=== PATIENT | female | born 1985 | race Caucasian/White ===

== ENCOUNTER 2016-09-19 07:32 | Emergency (ER) | payer MEDICAID ==
[~2016-09-19] VITALS: Ht 154.9 cm; Wt 65.5 kg
[~2016-09-19 07:32] MED LIST: CIPR500T4 PO; IBUP-1542 PO; NO MEDS
[2016-09-19 07:36] VITALS: Ht 154.9 cm; Wt 65.5 kg
[2016-09-19] MEDS ORDERED: morphine 4 MG/ML VIAL IV STA (08:06)
[2016-09-19] MEDS ORDERED: SOD CHLORIDE 0.9% 1,000 ML IV STA (08:06)
[2016-09-19] MEDS ORDERED: ONDANSETRON 4 MG INJ IV STA (08:06)
[2016-09-19 08:35] LABS: ADD UMIC YES; URINE BILIRUBIN (Dip) 1+ (NEGATIVE); URINE BLOOD (Dip) 1+ (NEGATIVE); URINE COLOR LT. YELLOW (YELLOW); URINE GLUCOSE (Dip) NEGATIVE (NEGATIVE); URINE KETONES (Dip) 40 (NEGATIVE); URINE LEUKOCYTE ESTERASE (Dip) 2+ (NEGATIVE); URINE NITRITE (Dip) NEGATIVE (NEGATIVE); URINE TOTAL PROTEIN (Dip) 1+ (NEGATIVE); URINE UROBILINOGEN (Dip) 1.0 E.U./dL (0.1-1.0)
[2016-09-19 08:48] LABS: ICTOTEST NEGATIVE (NEGATIVE)
[2016-09-19 08:49] LABS: SQUAMOUS EPITHELIAL CELL,UR MODERATE
[2016-09-19 08:51] LABS: BACTERIA,URINE MODERATE
[2016-09-19 09:08] LABS: ADD SCAN DIFF NO
[2016-09-19 09:19] LABS: BASOPHILS % 0.2 % (0.0-2.0); HEMATOCRIT 40.2 % (37.0-47.0); HEMOGLOBIN 13.1 g/dl (12.0-16.0); LYMPHOCYTES # 1.5 10^3/ul (0.8-2.9); LYMPHOCYTES % 13.4 % (15.0-51.0); MEAN CORPUSCULAR HEMOGLOBIN 28.2 pg (29.0-33.0); MEAN CORPUSCULAR HGB CONC 32.6 g/dl (32.0-37.0); MEAN CORPUSCULAR VOLUME 86.6 fl (82.0-101.0); MEAN PLATELET VOLUME 9.9 fl (7.4-10.4); MONOCYTE # 1.2 10^3/ul (0.3-0.9); MONOCYTES % 11.1 % (0.0-11.0); NEUTROPHIL # 8.3 10^3/ul (1.6-7.5); NEUTROPHILS % 74.8 % (39.0-77.0); PLATELET COUNT 278 10^3/UL (140-415); RED BLOOD COUNT 4.64 10^6/ul (4.20-5.40); RED CELL DISTRIBUTION WIDTH 15.9 % (11.5-14.5)
[2016-09-19 09:40] LABS: ALBUMIN 4.7 g/dl (3.3-4.9); ALBUMIN/GLOBULIN RATIO 1.3; BILIRUBIN,INDIRECT 0.3 mg/dl (0-1.1); BILIRUBIN,TOTAL 0.3 mg/dl (0.2-1.3); CALCIUM 9.1 mg/dl (8.4-10.2); CREATININE 0.73 mg/dl (0.44-1.00); POTASSIUM 3.6 mmol/L (3.5-5.1); TOTAL PROTEIN 8.3 g/dl (6.1-8.1)
--- NOTE | 2016-09-19 09:41 | RADRPT ---
PROCEDURE: CT abdomen and pelvis without contrast. CLINICAL INDICATION: Right lower quadrant abdominal pain with nausea and vomiting. TECHNIQUE: CT of the abdomen and pelvis without contrast was performed on a multidetector high-resolution CT [facility]. Coronal and sagittal reformatted images were obtained from the axial source images. Images we re reviewed on a high-resolution PACS workstation. The total exam CTDI equals 10.2 mGy and the total exam DLP equals 584.04 mGy-cm. One or more of the following dose reduction techniques were used: - Automated exposure control. - Adjustment of the mA and/or kV according to patient size. - Use of iterative reconstruction technique. COMPARISON: Pelvic ultrasound dated 10/07/2014. FINDINGS: Visualized lower thorax: The visualized lung bases are clear. The visualized heart is unremarkable. Hepatobiliary system and spleen: There is diffuse fatty infiltration of the liver, which is otherwise grossly unremarkable. There is no intra or extrahepatic biliary ductal dilatation. The gallbladder is grossly unremarkable. The spl een is grossly unremarkable. The pancreas is grossly unremarkable. Adrenal glands and genitourinary system: The adrenal glands are grossly unremarkable. There is mild right hydroureteronephrosis with no radio paque obstructing stone identified. There is also mild right perinephric inflammatory change. There is a punctate nonobstructing stone at the upper pole of the right kidney. There is no left-sided h ydronephrosis. The urinary bladder is grossly unremarkable. There are bilateral Essure devices in p lace. The uterus and adnexa are otherwise grossly unremarkable. Gastrointestinal system: The stomach and small bowel are unremarkable. There is no bowel wall thickening or evidence of obstr uction. The appendix is in the right lower quadrant and is unremarkable. Peritoneum, vascular, and lymphatics: There is no free intraperitoneal air or free fluid. There is no mesenteric or retroperitoneal adenop athy. The aorta is nonaneurysmal. Musculoskeletal system: There are no concerning osseous lesions. IMPRESSION: 1. Mild right hydroureteronephrosis and right perinephric inflammatory change with no radiopaque ob structing stone identified. Recent passage of a stone could potentially have this appearance. Under lying infection is not excluded and correlation with urinalysis is recommended. Post contrast CT can be performed as clinically warranted. Punctate nonobstructing stone at the upper pole of the right kidney. 2. Hepatic steatosis. RPTAT: GG .Chris De La Vega MD, MD Date Time Electronically viewed and signed by .Chris De La Vega MD, MD on 09/19/2016 09:40 .P/
[2016-09-19] MEDS ORDERED: CEFTRIAXONE 1 GM/50 ML (PMX) 50 ML IVPB ONE (10:30)
[2016-09-19] MEDS ORDERED: ACET1TAB40 PO (10:40)
[2016-09-19] MEDS ORDERED: CIPR500T4 PO (10:40)
[2016-09-19] MEDS ORDERED: IBUP-1542 PO (10:40)
--- NOTE | 2016-09-19 10:43 | ERD ---
ER Documentation Chief Complaint Date/Time DATE: 09/19/16 TIME: 10:41 Chief Complaint RLQ PAIN X 1 WEEK, FEVER SINCE MONDAY HPI This 31-year-old female complains of pain in her right lower quadrant abdomen for last week. Set of 5 fever for last 2 days. Patient denies any urinary complaints, cough, shortness breath or chest pain. ROS All systems reviewed and are negative except as per history of present illness. Medications Home Meds Active Scripts Acetaminophen with Codeine (Acetaminophen-Cod #3 Tablet) 1 Each Tablet, 1 TAB PO Q6H Y for PAIN, #7 TAB Prov:SREEDHAR BELLO MD 09/19/16 Ciprofloxacin Hcl* (Ciprofloxacin Hcl*) 500 Mg Tablet, 500 MG PO BID for 10 Days , TAB Prov:SREEDHAR BELLO MD 09/19/16 Ibuprofen* (Motrin*) 600 Mg Tab, 600 MG PO Q6, #20 TAB Prov:SREEDHAR BELLO MD 09/19/16 Ibuprofen* (Motrin*) 600 Mg Tab, 600 MG PO Q6, #30 TAB Prov:LINDA CONRAD 10/07/14 Ciprofloxacin Hcl* (Ciprofloxacin Hcl*) 500 Mg Tablet, 500 MG PO BID for 7 Days , TAB Prov:LINDA CONRAD 10/07/14 Reported Medications [No Meds] No Conflict Check 08/27/10 Allergies Allergies: Coded Allergies: No Known Drug Allergies (Verified Allergy, Mild, 08/30/10) PMhx/Soc Medical and Surgical Hx: pt denies Medical Hx, pt denies Surgical Hx History of Surgery: No Anesthesia Reaction: No Hx Neurological Disorder: No Hx Respiratory Disorders: No Hx Cardiac Disorders: No Hx Psychiatric Problems: No Hx Miscellaneous Medical Probl: No Hx Alcohol Use: No Hx Substance Use: No Hx Tobacco Use: No Physical Exam Vitals Vital Signs Date Time Temp Pulse Resp B/P Pulse Ox O2 Delivery O2 Flow Rate FiO2 09/19/16 07:36 100.4 124 22 123/81 98 Physical Exam Const: [] Alert, [id number]. Head: Atraumatic Eyes: Normal Conjunctiva ENT: Normal External Ears, Nose and Mouth. Neck: Full range of motion..~ No meningismus. Resp: Clear to auscultation bilaterally Cardio: Regular rate and rhythm, no murmurs Abd: Soft, tender in the right mid abdomen without rebound. No exquisite tenderness in the pelvis. No Pressley sign. non distended. Normal bowel sounds Skin: No petechiae or rashes Back: No midline or flank tenderness Ext: No cyanosis, or edema Neur: Awake and alert Psych: Normal Mood and Affect Result Diagram: 09/19/16 0820 09/19/16 0820 Results 24 hrs Laboratory Tests Test 09/19/16 08:10 09/19/16 08:20 Urine Color LT. YELLOW Urine Clarity CLEAR Urine pH 6.0 Urine Specific [place] 1.010 Urine Ketones 40 Urine Nitrite NEGATIVE Urine Bilirubin 1+ Urine Ictotest NEGATIVE Urine Urobilinogen 1.0 E.U./dL Urine Leukocyte Esterase 2+ Urine Microscopic RBC 2-5/HPF Urine Microscopic WBC 10-25/HPF Urine Squamous Epithelial Cells MODERATE Urine Bacteria MODERATE Urine Hemoglobin 1+ Urine Glucose NEGATIVE% Urine Total Protein 1+ White Blood Count 11.010^3/ul Red Blood Count 4.6410^6/ul Hemoglobin 13.1g/dl Hematocrit 40.2% Mean Corpuscular Volume 86.6fl Mean Corpuscular Hemoglobin 28.2pg Mean Corpuscular Hemoglobin Concent 32.6g/dl Red Cell Distribution Width 15.9% Platelet Count 77914^3/UL Mean Platelet Volume 9.9fl Neutrophils % 74.8% Lymphocytes % 13.4% Monocytes % 11.1% Eosinophils % 0.0% Basophils % 0.2% Nucleated Red Blood Cells % 0.0/100WBC Neutrophils # 8.310^3/ul Lymphocytes # 1.510^3/ul Monocytes # 1.210^3/ul Eosinophils # 0.010^3/ul Basophils # 0.010^3/ul Nucleated Red Blood Cells # 0.010^3/ul Sodium Level 137mmol/L Potassium Level 3.6mmol/L Chloride Level 98mmol/L Carbon Dioxide Level 24mmol/L Anion Gap 19 Blood Urea Nitrogen 7mg/dl Creatinine 0.73mg/dl Glucose Level 116mg/dl Calcium Level 9.1mg/dl Total Bilirubin 0.3mg/dl Direct Bilirubin 0.00mg/dl Indirect Bilirubin 0.3mg/dl Aspartate Amino Transf (AST/SGOT) 81IU/L Alanine Aminotransferase (ALT/SGPT) 121IU/L Alkaline Phosphatase 135IU/L Total Protein 8.3g/dl Albumin 4.7g/dl Globulin 3.60g/dl Albumin/Globulin Ratio 1.30 Lipase 38U/L Current Medications Medications (Trade) Dose Ordered Sig/Cassidy Route PRN Reason Start Time Stop Time Status Last Admin Dose Admin Sodium Chloride (NS) 1,000 ml @ 1,000 mls/hr Q1H STAT IV 09/19/16 08:06 09/19/16 09:05 DC 09/19/16 08:22 Morphine Sulfate (morphine) 4 mg ONCE STAT IV 09/19/16 08:06 09/19/16 08:08 DC 09/19/16 08:23 Ondansetron HCl 4 mg 4 mg ONCE STAT IV 09/19/16 08:06 09/19/16 08:08 DC 09/19/16 08:22 Ceftriaxone Sodium (Rocephin) 50 ml @ 100 mls/hr ONCE ONCE IVPB 09/19/16 10:30 09/19/16 10:59 09/19/16 10:28 Procedures/MDM CBC shows a white blood cell count of 11. Urine shows positive leukocytes and bacteria although with epithelial cells as well. Instrument sent for culture. HCG is negative. Given the concern for appendicitis a CT abdomen pelvis was performed which shows normal appendix. There is some stranding and slight hydronephrosis on the right suggestive of possible mild pyelonephritis versus passed stone. There is no evidence of abscess or additional acute abnormalities. Patient was given Tylenol for low-grade fever. Patient was given Rocephin 1 g IV for findings on urine and findings suggestive of UTI or pyelonephritis on CT scan. Patient had a benign abdomen on serial exam. Patient presents with right lower quadrant abdominal pain of uncertain etiology with signs of UTI and pyonephritis and CT scan. She will treated with Cipro, Tylenol 3 and ibuprofen at home instructions for clear fluids. Patient is advised to recheck for vomiting, worsening pain, new worsening symptoms in the next 1-2 days otherwise with primary care doctor this week. The patient was stable with no new complaints during the ER course. Clinically, there is no current evidence to suggest meningitis, sepsis, acute abdomen, pneumonia, acute coronary syndrome, pulmonary embolism, or any other emergent condition appearing to require further evaluation or hospitalization. The patient should certainly return for any new or worsening symptoms per the aftercare instructions. They should otherwise follow-up with her primary care doctor for reevaluation this week. Departure Diagnosis: Primary Impression: UTI (urinary tract infection) Urinary tract infection type: acute cystitis Hematuria presence: without hematuria Qualified Code: N30.00 - Acute cystitis without hematuria Additional Impression: Abdominal pain Abdominal location: right lower quadrant Qualified Code: R10.31 - Right lower quadrant abdominal pain Condition: Stable Patient Instructions: Abdominal Pain, Understanding Urinary Tract Infections ( UTIs) Additional Instructions: Urine shows signs of infection as well as CAT scan. Drink plenty of fluids home and recheck with primary doctor this week or for new or worsening symptoms- fevers, vomiting, worsening pain. SREEDHAR BELLO MD Sep 19, 2016 10:43
[2016-09-19] MEDS ORDERED: ACETAMINOPHEN 325 MG TAB PO ONE (11:00)
== END 2016-09-19 10:55 | disposition home or self-care (01) ==
LOC: FTE 07:32
DX: N30.00 Acute cystitis without hematuria (principal); R11.2 Nausea with vomiting, unspecified
CPT/HCPCS: 74176; 80053; 81001; 83690; 85025; J0696; J2270; J2405; J7030; 36415; 96374; 96375

== ENCOUNTER 2016-11-30 09:18 | Emergency (ER) | payer SELFPAY ==
[~2016-11-30] VITALS: Ht 157.5 cm; Wt 64.0 kg
[~2016-11-30 09:18] MED LIST changes: +ACET1TAB40 PO
[2016-11-30 09:19] VITALS: Ht 157.5 cm; Wt 64.0 kg
[2016-11-30] MEDS ORDERED: LIDOCAINE 2%/EPI MPF (SDV) 20 ML VIAL INJ ONE (09:30)
[2016-11-30] MEDS ORDERED: HYDROCODONE/APAP (5/325) TAB PO ONE (10:00)
[2016-11-30] MEDS ORDERED: IBUP-1542 PO (11:10)
--- NOTE | 2016-11-30 11:19 | ERD ---
ER Documentation Chief Complaint Date/Time DATE: 11/30/16 TIME: 11:15 Chief Complaint lac on r.side scalp x this am HPI This 31-year-old female presents emergency room with a scalp laceration after she was in the shower and struck her head on the shower rack that hangs from her showerhead. . There was some bleeding. She did not lose consciousness or have any nausea or vomiting. She has no neurological symptoms and feels well except for the pain at the site laceration. ROS All systems reviewed and are negative except as per history of present illness. Medications Home Meds Active Scripts Ibuprofen* (Motrin*) 600 Mg Tab, 600 MG PO Q6H Y for PAIN AND OR ELEVATED TEMP, #30 TAB Prov:KECIA SAMS DO 11/30/16 Acetaminophen with Codeine (Acetaminophen-Cod #3 Tablet) 1 Each Tablet, 1 TAB PO Q6H Y for PAIN, #7 TAB Prov:SREEDHAR BELLO MD 09/19/16 Ciprofloxacin Hcl* (Ciprofloxacin Hcl*) 500 Mg Tablet, 500 MG PO BID for 10 Days , TAB Prov:SREEDHAR BELLO MD 09/19/16 Ibuprofen* (Motrin*) 600 Mg Tab, 600 MG PO Q6, #20 TAB Prov:SREEDHAR BELLO MD 09/19/16 Ibuprofen* (Motrin*) 600 Mg Tab, 600 MG PO Q6, #30 TAB Prov:LINDA CONRAD 10/07/14 Ciprofloxacin Hcl* (Ciprofloxacin Hcl*) 500 Mg Tablet, 500 MG PO BID for 7 Days , TAB Prov:LINDA CONRAD 10/07/14 Reported Medications [No Meds] No Conflict Check 08/27/10 Allergies Allergies: Coded Allergies: No Known Drug Allergies (Verified Allergy, Mild, 11/30/16) PMhx/Soc History of Surgery: No Anesthesia Reaction: No Hx Neurological Disorder: No Hx Respiratory Disorders: No Hx Cardiac Disorders: No Hx Psychiatric Problems: No Hx Miscellaneous Medical Probl: No Hx Alcohol Use: No Hx Substance Use: No Hx Tobacco Use: No Smoking Status: Current every day smoker Physical Exam Vitals Vital Signs Date Time Temp Pulse Resp B/P Pulse Ox O2 Delivery O2 Flow Rate FiO2 11/30/16 09:19 97.3 89 18 119/70 98 Physical Exam Const: [] No distress Head: 3 cm laceration to right parietal scalp. Very scant active bleeding. No galeal involvement Eyes: Normal Conjunctiva, EOMI, PERRLA Neck: Full range of motion..~No midline or paraspinal muscle tenderness Neur: Awake and alert and oriented 3, cranial nerves II through XII intact, no cerebellar deficits, normal gait Psych: Normal Mood and Affect Results 24 hrs Current Medications Medications (Trade) Dose Ordered Sig/Cassidy Route PRN Reason Start Time Stop Time Status Last Admin Dose Admin Lidocaine/ Epinephrine (Xylocaine 2%/ Epi Mpf(Sdv)) 20 ml ONCE ONCE INJ 11/30/16 09:30 11/30/16 09:31 DC 11/30/16 09:40 Acetaminophen/ Hydrocodone Bitart ([place] (5/325)) 1 tab ONCE ONCE PO 11/30/16 10:00 11/30/16 10:01 DC 11/30/16 09:55 Procedures/MDM Scalp laceration without any serious head injury. Repaired in ER. Return precautions and primary care follow-up. She was given a tablet of [place] for pain in the emergency room. Laceration repair note, right parietal scalp, 2.5 cm laceration: Anesthetized with 2 cc of lidocaine with epinephrine, thoroughly explored with high-powered lamp, no foreign bodies seen, especially very complicated by some active bleeding. 2 shelley were placed equidistant which led to good closure and hemostasis of the wound. Patient tolerated the procedure with no comp occasions Departure Diagnosis: Primary Impression: Scalp laceration Condition: Stable Patient Instructions: Laceration, Scalp Referrals: [facility] YOU HAVE RECEIVED A MEDICAL SCREENING EXAM AND THE RESULTS INDICATE THAT YOU DO NOT HAVE A CONDITION THAT REQUIRES URGENT TREATMENT IN THE EMERGENCY DEPARTMENT. FURTHER EVALUATION AND TREATMENT OF YOUR CONDITION CAN WAIT UNTIL YOU ARE SEEN IN YOUR DOCTORS OFFICE WITHIN THE NEXT 1-2 DAYS. IT IS YOUR RESPONSIBILITY TO MAKE AN APPOINTMENT FOR FOLOW-UP CARE. IF YOU HAVE A PRIMARY DOCTOR --you should call your primary doctor and schedule an appointment IF YOU DO NOT HAVE A PRIMARY DOCTOR YOU CAN CALL OUR PHYSICIAN REFERRAL HOTLINE AT IF YOU CAN NOT AFFORD TO SEE A PHYSICIAN YOU CAN CHOSE FROM THE FOLLOWING [facility] [address] [facility] [facility] [address] [facility] [facility] [address] [facility] [address] [facility] [address] [facility]. [facility]. [address] Additional Instructions: Return to ER in 9-11 days for staple removal. Call your primary care doctor TOMORROW for an appointment during the next 2-3 days.See the doctor sooner or return here if your condition worsens before your appointment time. KECIA SAMS DO Nov 30, 2016 11:19
== END 2016-11-30 11:30 | disposition home or self-care (01) ==
LOC: FTE 09:18
DX: S01.01XA Laceration without foreign body of scalp, initial encounter (principal); F17.210 Nicotine dependence, cigarettes, uncomplicated; W26.8XXA Contact with other sharp object(s), not elsewhere classified, initial encounter; Y92.9 Unspecified place or not applicable

== ENCOUNTER 2016-12-14 17:46 | Emergency (ER) | payer SELFPAY ==
[~2016-12-14] VITALS: Ht 160 cm; Wt 64.0 kg
[2016-12-14 17:49] VITALS: Ht 160 cm; Wt 64.0 kg
--- NOTE | 2016-12-14 19:23 | ERD ---
ER Documentation Chief Complaint Date/Time DATE: 12/14/16 TIME: 19:22 Chief Complaint staple removal scalp HPI 31-year-old female presents for evaluation of this scalp laceration. Is day # 12. She has vonda and is requesting removal. She denies any fevers, vomiting , visual changes, additional symptoms. ROS All systems reviewed and are negative except as per history of present illness. Medications Home Meds Active Scripts Ibuprofen* (Motrin*) 600 Mg Tab, 600 MG PO Q6H Y for PAIN AND OR ELEVATED TEMP, #30 TAB Prov:KECIA SAMS DO 11/30/16 Acetaminophen with Codeine (Acetaminophen-Cod #3 Tablet) 1 Each Tablet, 1 TAB PO Q6H Y for PAIN, #7 TAB Prov:SREEDHAR BELLO MD 09/19/16 Ciprofloxacin Hcl* (Ciprofloxacin Hcl*) 500 Mg Tablet, 500 MG PO BID for 10 Days , TAB Prov:SREEDHAR BELLO MD 09/19/16 Ibuprofen* (Motrin*) 600 Mg Tab, 600 MG PO Q6, #20 TAB Prov:SREEDHAR BELLO MD 09/19/16 Ibuprofen* (Motrin*) 600 Mg Tab, 600 MG PO Q6, #30 TAB Prov:LINDA CONRAD 10/07/14 Ciprofloxacin Hcl* (Ciprofloxacin Hcl*) 500 Mg Tablet, 500 MG PO BID for 7 Days , TAB Prov:LINDA CONRAD 10/07/14 Reported Medications [No Meds] No Conflict Check 08/27/10 Allergies Allergies: Coded Allergies: No Known Drug Allergies (Verified Allergy, Mild, 11/30/16) PMhx/Soc History of Surgery: No Anesthesia Reaction: No Hx Neurological Disorder: No Hx Respiratory Disorders: No Hx Cardiac Disorders: No Hx Psychiatric Problems: No Hx Miscellaneous Medical Probl: No Hx Alcohol Use: No Hx Substance Use: No Hx Tobacco Use: No Physical Exam Vitals Vital Signs Date Time Temp Pulse Resp B/P Pulse Ox O2 Delivery O2 Flow Rate FiO2 12/14/16 17:49 98.5 80 18 127/62 96 Physical Exam Const: []Alert, not ill-appearing. Head: Atraumatic . . Healing right scalp laceration to vonda in place. No erythema or discharge or bleeding. Eyes: Normal Conjunctiva ENT: Normal External Ears, Nose and Mouth. Neck: Full range of motion..~ No meningismus. Resp: Clear to auscultation bilaterally Cardio: Regular rate and rhythm, no murmurs Abd: Soft, non tender, non distended. Normal bowel sounds Skin: No petechiae or rashes Back: No midline or flank tenderness Ext: No cyanosis, or edema Neur: Awake and alert Psych: Normal Mood and Affect Procedures/MDM Vonda were removed without complications. Patient presents with a satisfactorily healing scalp laceration without signs or symptoms of infection, signs of intracranial bleeding, or complications related to injury. She will be discharged home to return precautions and primary care follow-up. Departure Diagnosis: Primary Impression: Encounter for removal of vonda Condition: Stable Patient Instructions: Staple Removal, No Complication Additional Instructions: Recheck for new or worsening symptoms or primary care doctor. SREEDHAR BELLO MD Dec 14, 2016 19:23
== END 2016-12-14 19:45 | disposition home or self-care (01) ==
LOC: FTE 17:46
DX: Z48.02 Encounter for removal of sutures (principal)
CPT/HCPCS: 99281

== ENCOUNTER 2017-06-15 00:11 | Emergency (ER) | END 2017-06-15 01:24 | disposition home or self-care (01) ==

== ENCOUNTER 2019-02-12 20:08 | Inpatient (IN) | payer MEDICAID ==
[~2019-02-12] VITALS: Ht 157.5 cm; Wt 68.5 kg
[~2019-02-12 20:08] MED LIST changes: +BUTA1CAP38 PO; +CEPH-443 PO; +HYDR-3601 PO; +HYDR-4011 PO; +IBUP800T48 PO; +MELO15TA30 PO; +SULF1TAB31 PO
[2019-02-12 20:25] VITALS: Ht 157.5 cm; Wt 68.5 kg
[2019-02-12] MEDS ORDERED: ONDANSETRON (ODT) 4 MG TAB ODT STA (20:43)
[2019-02-12] MEDS ORDERED: HYDROCODONE/APAP (5/325) TAB PO ONE (21:00)
[2019-02-12] MEDS ORDERED: IBUPROFEN 600 MG TAB PO ONE (21:00)
[2019-02-12] MEDS ORDERED: SOD CHLORIDE 0.9% 1,000 ML IV STA (22:27)
[2019-02-12] MEDS ORDERED: morphine 4 MG/ML VIAL IV STA (22:27)
[2019-02-12] MEDS ORDERED: SOD CHLORIDE 0.9% 1,000 ML IV SCH (23:43)
[2019-02-13 02:15] VITALS: BP 144/84; RESP 20
[2019-02-13] MEDS: HYDROmorphONE 1 MG/ML SYG IV PRN ×6 (02:57→23:31)
[2019-02-13] MEDS ORDERED: ALBUTEROL/IPRATROPIUM (NEB) 3 ML AMP HHN PRN (03:00)
[2019-02-13] MEDS: DEXTROSE 5%-0.45% NACL 1,000 ML IV SCH ×2 (03:00→14:16)
[2019-02-13] MEDS ORDERED: ACETAMINOPHEN 325 MG TAB PO PRN ×2 (03:00)
[2019-02-13] MEDS ORDERED: NACL 0.9% 3 ML SYG IV SCH (03:00)
[2019-02-13] MEDS ORDERED: ONDANSETRON 4 MG INJ IV PRN ×2 (03:00)
[2019-02-13 07:42] VITALS: BP 117/57; PULSE 66; RESP 18; RESP 66
[2019-02-13 14:14] VITALS: BP 106/68; PULSE 67; RESP 17
[2019-02-13 20:35] VITALS: BP 124/81; PULSE 109; RESP 18
[2019-02-13 20:46] VITALS: BP 139/85; PULSE 76; RESP 18
[2019-02-13] MEDS: ACET/BUTAL/CAFF TAB PO PRN (21:13)
[2019-02-14] VITALS (15 sets, daily range): BP systolic 101–132; BP diastolic 60–82; PULSE 68–124; RESP 9–18
[2019-02-14] MEDS: DEXTROSE 5%-0.45% NACL 1,000 ML IV SCH ×3 (02:25→15:27)
[2019-02-14] MEDS: ACET/BUTAL/CAFF TAB PO PRN (02:27)
[2019-02-14] MEDS: HYDROmorphONE 1 MG/ML SYG IV PRN ×3 (05:05→13:50)
[2019-02-14] MEDS ORDERED: ENOXAPARIN 40 MG/0.4 ML SYG SC SCH (09:00)
[2019-02-14] MEDS ORDERED: POLYMYXIN/BACITRACIN 1L IRRIG ONE (17:54)
[2019-02-14] MEDS ORDERED: MIDAZOLAM 1 MG/ML 2 ML INJ ONE (18:35)
[2019-02-14] MEDS ORDERED: CEFAZOLIN 1 GM INJ ONE (18:35)
[2019-02-14] MEDS ORDERED: FENTAnyl 50 MCG/ML VIAL ONE (18:35)
[2019-02-14] MEDS ORDERED: METOCLOPRAMIDE 10 MG INJ ONE (18:35)
[2019-02-14] MEDS ORDERED: morphine SULFATE/PF (10 MG/10 ML) INJ ONE (18:35)
[2019-02-14] MEDS ORDERED: EPHEDrine 25 MG/5 ML SYG ONE (18:35)
[2019-02-14] MEDS ORDERED: PROPOFOL 20 ML ONE (18:35)
[2019-02-14] MEDS ORDERED: HYDROmorphONE 1 MG/5 ML IV SYRINGE IV PRN ×3 (19:00)
[2019-02-14] MEDS ORDERED: MEPERIDINE 25 MG INJ IV PRN (19:00)
[2019-02-14] MEDS ORDERED: hydrALAzine 20 MG INJ IV PRN (19:00)
[2019-02-14] MEDS ORDERED: LABETALOL HCL 20MG INJ IV PRN (19:00)
[2019-02-14] MEDS ORDERED: DIPHENHYDRAMINE 50 MG INJ IV PRN (19:00)
[2019-02-14] MEDS ORDERED: FENTAnyl 50 MCG/ML VIAL IV PRN ×3 (19:00)
[2019-02-14] MEDS ORDERED: ONDANSETRON 4 MG INJ IV PRN (19:00)
[2019-02-14] MEDS ORDERED: ROPIVACAINE 0.5 % 30 ML VIAL ONE (20:09)
[2019-02-14] MEDS ORDERED: SUCCINYLCHOLINE CHLORIDE 100 MG/5 ML SYG IV ONE (20:27)
[2019-02-14] MEDS ORDERED: morphine 4 MG/ML VIAL IV PRN (21:00)
[2019-02-14] MEDS ORDERED: NACL 0.9% 3 ML SYG IV SCH (21:00)
[2019-02-14] MEDS: CEFAZOLIN 1 GM/50 ML (PMX) 50 ML IVPB SCH (21:47)
[2019-02-14] MEDS: D5W-0.45 NACL + KCL 20 MEQ 1,000 ML IV SCH (22:47)
[2019-02-15] VITALS: BP 126/67; PULSE 87; RESP 18
[2019-02-15] MEDS: HYDROmorphONE 1 MG/ML SYG IV PRN ×6 (00:17→22:21)
[2019-02-15] MEDS: HYDROCODONE/APAP (5/325) TAB PO PRN ×7 (00:57→23:42)
[2019-02-15] MEDS: DEXTROSE 5%-0.45% NACL 1,000 ML IV SCH (04:43)
[2019-02-15] MEDS: CEFAZOLIN 1 GM/50 ML (PMX) 50 ML IVPB SCH ×2 (05:08→13:43)
[2019-02-15] MEDS: D5W-0.45 NACL + KCL 20 MEQ 1,000 ML IV SCH (06:51)
[2019-02-15 07:38] VITALS: BP 121/62; PULSE 82; RESP 19
[2019-02-15] MEDS: ENOXAPARIN 40 MG/0.4 ML SYG SC SCH (09:05)
[2019-02-15] MEDS ORDERED: BISACODYL (EC) 5 MG TAB PO PRN (09:30)
[2019-02-15] MEDS: POLYETHYLENE GLYCOL 17 GM PACKET PO SCH ×2 (11:58→21:15)
[2019-02-15 16:05] VITALS: BP 115/94; PULSE 99; RESP 18
[2019-02-15 20:12] VITALS: BP 141/62; PULSE 101; RESP 20
[2019-02-16 01:29] VITALS: BP 138/68; PULSE 100; RESP 18
[2019-02-16] MEDS: HYDROmorphONE 1 MG/ML SYG IV PRN ×5 (03:20→19:40)
[2019-02-16] MEDS: HYDROCODONE/APAP (5/325) TAB PO PRN ×5 (04:13→20:33)
[2019-02-16] MEDS: POLYETHYLENE GLYCOL 17 GM PACKET PO SCH ×2 (09:00→20:32)
[2019-02-16 09:04] VITALS: BP 126/79; PULSE 94; RESP 18
[2019-02-16] MEDS: ENOXAPARIN 40 MG/0.4 ML SYG SC SCH (09:49)
[2019-02-16 15:52] VITALS: BP 123/71; PULSE 88; RESP 18
[2019-02-16 19:50] VITALS: BP 129/76; PULSE 89; RESP 20
[2019-02-17] MEDS: HYDROCODONE/APAP (5/325) TAB PO PRN ×6 (00:12→21:40)
[2019-02-17] MEDS: HYDROmorphONE 1 MG/ML SYG IV PRN (03:57)
[2019-02-17] MEDS: POLYETHYLENE GLYCOL 17 GM PACKET PO SCH ×2 (07:43→21:00)
[2019-02-17] MEDS: ENOXAPARIN 40 MG/0.4 ML SYG SC SCH (07:44)
[2019-02-17 08:23] VITALS: BP 129/82; PULSE 81; RESP 18
[2019-02-17] MEDS ORDERED: NA PHOSPHATE/BIPHOS 133 ML ENEMA PR PRN (09:00)
[2019-02-17] MEDS: HYDROmorphONE 0.5 MG/0.5 ML SYG IV PRN ×2 (09:07→19:46)
[2019-02-17] MEDS: CYCLOBENZAPRINE 10 MG TAB PO SCH ×2 (12:17→21:40)
[2019-02-17 14:09] VITALS: BP 124/78; PULSE 95; RESP 18
[2019-02-17 19:27] VITALS: BP 136/85; PULSE 65; RESP 18
[2019-02-18 01:25] VITALS: BP 124/72; PULSE 78; RESP 18
[2019-02-18] MEDS: HYDROCODONE/APAP (5/325) TAB PO PRN ×6 (01:34→20:33)
[2019-02-18 07:29] VITALS: BP 118/68; PULSE 72; RESP 19
[2019-02-18] MEDS: POLYETHYLENE GLYCOL 17 GM PACKET PO SCH ×2 (08:17→20:34)
[2019-02-18] MEDS: CYCLOBENZAPRINE 10 MG TAB PO SCH ×3 (08:17→21:44)
[2019-02-18] MEDS: ENOXAPARIN 40 MG/0.4 ML SYG SC SCH (08:23)
[2019-02-18] MEDS ORDERED: morphine 2 MG INJ IV PRN (10:30)
[2019-02-18 13:21] VITALS: BP 127/84; PULSE 101; RESP 20
[2019-02-18 19:44] VITALS: BP 125/89; PULSE 109; RESP 18
[2019-02-19 02:09] VITALS: BP 123/77; PULSE 86; RESP 18
[2019-02-19] MEDS: HYDROCODONE/APAP (5/325) TAB PO PRN ×3 (02:16→21:03)
[2019-02-19 07:31] VITALS: BP 117/77; PULSE 80; RESP 18
[2019-02-19] MEDS: CYCLOBENZAPRINE 10 MG TAB PO SCH ×3 (08:36→20:58)
[2019-02-19] MEDS: POLYETHYLENE GLYCOL 17 GM PACKET PO SCH ×2 (08:46→20:58)
[2019-02-19] MEDS: ENOXAPARIN 40 MG/0.4 ML SYG SC SCH (08:46)
[2019-02-19 14:00] VITALS: BP 124/72; PULSE 79; RESP 16
[2019-02-19 20:16] VITALS: BP 124/82; PULSE 101; RESP 18
[2019-02-20] MEDS: HYDROCODONE/APAP (5/325) TAB PO PRN ×3 (03:47→12:48)
[2019-02-20 07:52] VITALS: BP 109/66; RESP 18
[2019-02-20] MEDS: POLYETHYLENE GLYCOL 17 GM PACKET PO SCH (09:00)
[2019-02-20] MEDS: CYCLOBENZAPRINE 10 MG TAB PO SCH ×2 (09:12→12:38)
[2019-02-20] MEDS: ENOXAPARIN 40 MG/0.4 ML SYG SC SCH (09:16)
[2019-02-20 13:54] VITALS: BP 112/72; PULSE 89; RESP 17
== END 2019-02-20 16:00 | disposition home or self-care (01) | DRG 494 ==
LOC: FTE 20:08 → MS1 23:44
PROVIDERS: ADMIT Internal Medicine; ATTEND Internal Medicine
PROC: 0QSG04Z Reposition Right Tibia with Internal Fixation Device, Open Approach (ICD-10-PCS; 2019-02-14)
PROC: 0QSJ04Z Reposition Right Fibula with Internal Fixation Device, Open Approach (ICD-10-PCS; principal; 2019-02-14 17:00)
DX: S82.841A Displaced bimalleolar fracture of right lower leg, initial encounter for closed fracture (principal); W18.39XA Other fall on same level, initial encounter
CPT/HCPCS: 36415; 71045; 73600; 80048; 80053; 81001; 81003; 83735; 84100; 85025; 85610; 85730; 87086; 93005; 93971; 96374; 97110; 97116; 97161; 97530; C1713; J0690; J1170; J1650; J2250; J2270; J2274; J2765; J2795; J3010; J3480; J7030; J7042